=== PATIENT | female | born 1960 | race Two or more races ===

== ENCOUNTER → 2024-08-06 | Outpatient (CLI) | payer MEDICAID, SELFPAY ==
--- NOTE | 2024-08-06 13:30 | ECHO_ITS ---
Transthoracic Echo Report Ht (in): 64 Wt (lb): 185 Exam Location: Echo Lab Status: Preadmit Bufferer: Kari William Indications: Procedure Performed: BP: / HR: Technical Quality: Technically Difficult Due to Body Habitus MEASUREMENTS (Male / Female) Normal Values 2D ECHO LV Diastolic Diameter PLAX 4.9 cm 4.2 - 5.9 / 3.9 - 5.3 cm LV Systolic Diameter PLAX 3.0 cm IVS Diastolic Thickness 0.5 cm 0.6 - 1.0 / 0.6 - 0.9 cm LVPW Diastolic Thickness 0.9 cm 0.6 - 1.0 / 0.6 - 0.9 cm LV Relative Wall Thickness 0.3 LVOT Diameter 1.6 cm LA Volume Index 35.8 cm?/m? 16 - 28 cm?/m? Ascending Aorta Diameter 2.9 cm DOPPLER AV Peak Velocity 144.0 cm/s AV Peak Gradient 8.3 mmHg LVOT Peak Velocity 80.5 cm/s LVOT Peak Gradient 2.6 mmHg AV Area Cont Eq pk 1.1 cm? MV Area PHT 3.5 cm? Mitral E Point Velocity 59.7 cm/s Mitral A Point Velocity 76.6 cm/s Mitral E to A Ratio 0.8 LV E' Lateral Velocity 11.6 cm/s Mitral E to LV E' Lateral Ratio 5.1 LV E' Septal Velocity 8.3 cm/s Mitral E to LV E' Septal Ratio 7.2 TR Peak Velocity 213.0 cm/s TR Peak Gradient 18.1 mmHg PV Peak Velocity 113.0 cm/s PV Peak Gradient 5.1 mmHg FINDINGS Left Ventricle Normal left ventricular size, wall thickness, systolic function with no obvious regional wall motion abnormalities. Normal left ventricular diastolic filling pattern for age. The ejection fraction is visually estimated at 55 %. Right Ventricle The right ventricle is normal in size and systolic function. The estimated right ventricular systolic pressure, __ mmHg. Left Atrium The left atrium is mildly dilated. Right Atrium The right atrium is mildly dilated. Atrial Septum The interatrial septum appears normal with no evidence of a shunt. Aorta The aorta is normal by two-dimensional, color flow and Doppler interrogation. Mitral Valve The mitral valve is normal by two-dimensional, color flow and Doppler interrogation. There is no significant mitral valve regurgitation, stenosis or prolapse. Aortic Valve The aortic valve is trileaflet and normal by two-dimensional, color flow and Doppler interrogation. There is no significant aortic valve regurgitation. Tricuspid Valve The tricuspid valve is normal by two-dimensional, color flow and Doppler interrogation. There is mild tricuspid regurgitation. Pulmonic Valve The pulmonic valve is not well visualized. There is no significant pulmonic valve regurgitation. Vessels The pulmonary artery appears normal. The inferior vena cava pulmonary and hepatic veins appear normal. Pericardium The pericardium is normal by two-dimensional imaging. There is no significant pericardial effusion. CONCLUSIONS Indications: Other Specified Sympotoms and Signs INvolving the Circulartory and Respiratory Systems. LV Normal. Estimated EF 55%. Normal Diastology. RV Normal. Mild LURDES. Mld TR. No Pericardial Effusion. Gabe Hassan (Electronically Signed) Final Date: 07 August 2024 11:02
--- NOTE | 2024-08-06 14:00 | XR_ITS ---
Examination: Carotid arterial duplex scan, ultrasound. Date and time of exam: 08/06/2024t 1405 hours INDICATIONS: Carotid bruit on auscultation this week Technique: Multiple sonographic images have been obtained of the carotid arteries and vertebral arteries, B-mode/grayscale imaging and Doppler spectral analysis and color flow Peak systolic and diastolic velocities have been recorded. Systolic diastolic ratios have been calculated. Findings: Right peak systolic velocities: Distal internal carotid artery peak systolic velocity is 1.2 M/sec Proximal internal carotid artery peak systolic velocity is 0.8 M/sec Carotid bifurcation peak systolic velocity is 0.9 M/sec External carotid artery peak systolic velocity is 0.5 M/sec Vertebral artery flow is antegrade. Left peak systolic velocities: Distal internal carotid artery peak systolic velocity is 0.8 M/sec Proximal internal carotid artery peak systolic velocity is 0.6 M/sec Carotid bifurcation peak systolic velocity is 1.0 M/sec External carotid artery peak systolic velocity is 0.6 M/sec Vertebral artery flow is antegrade Doppler waveform analysis demonstrates no spectral broadening Impression: Right internal carotid artery demonstrates 10-30% stenosis. Left internal carotid artery demonstrates 0-10% stenosis.
== END | disposition home or self-care (01) ==
PROVIDERS: PCP Physician Assistant; Referring Provider Physician Assistant; Visit Provider Physician Assistant
DX: I65.21 Occlusion and stenosis of right carotid artery (principal); I07.1 Rheumatic tricuspid insufficiency
CPT/HCPCS: 93306; 93880